=== PATIENT | female | born 1985 | race Caucasian/White ===

== ENCOUNTER → 2018-06-05 | Outpatient (CLI) | payer OTHER | LOC: FIMAGING 10:10 | PROVIDERS: ATTEND Obstetrics & Gynecology | DX: O09.522 Supervision of elderly multigravida, second trimester (principal); O99.280 Endocrine, nutritional and metabolic diseases complicating pregnancy, unspecified trimester; Z3A.19 19 weeks gestation of pregnancy ==

== ENCOUNTER 2018-10-23 05:50 | Inpatient (IN) | payer OTHER | END 2018-10-25 12:45 | disposition home or self-care (01) | LOC: FLD 05:50 → FOB 12:50 ==